=== PATIENT | male | born 1950 | race Caucasian/White ===

== ENCOUNTER → 2017-11-05 | Outpatient (CLI) | payer BC, MEDICARE ==
--- NOTE | 2017-11-05 15:47 | RAD ---
Chest, 2 views, 11/05/2017: History: Cough, bronchitis, URI Comparison is made to a study from 07/03/2011. The heart has increased in size and is now at the upper limits of normal. There are small bilateral pleural effusions. There are interstitial type opacities in the lungs. There is mild right parahilar infiltrate obscuring the underlying pulmonary vascularity. The findings suggest pulmonary edema due to congestive heart failure. Pneumonia is less likely. IMPRESSION: Borderline cardiomegaly with pulmonary infiltrates and small pleural effusions most compatible with congestive heart failure.
[2017-11-05 15:51] LABS: BASO % 1 % (0-3); EOS # 0.1 x10^3/uL (0.0-0.7); EOS % 1 % (0-3); HEMATOCRIT 27.6 % (39.0-53.0); LYMPH # 0.6 x10^3/uL (1.0-4.8); LYMPH % 9 % (24-48); MEAN CORPUSCULAR HEMOGLOBIN 33 pg (25-35); MEAN CORPUSCULAR HGB CONC 33 g/dL (31-37); MEAN CORPUSCULAR VOLUME 102 fL (79-100); MONO # 0.4 x10^3/uL (0.0-1.1); MONO % 6 % (0-9); NEUT # 5.3 x10^3uL (1.8-7.7); NEUT % 84 % (31-73); PLATELET COUNT 182 x10^3/uL (140-400); RED BLOOD COUNT 2.69 x10^6/uL (4.30-5.70); RED CELL DISTRIBUTION WIDTH 28.3 % (11.5-14.5); WHITE BLOOD COUNT 6.4 x10^3/uL (4.0-11.0)
[2017-11-05 15:54] LABS: CALCIUM 9.8 mg/dL (8.5-10.1); GFR 74.5; POTASSIUM 4.2 mmol/L (3.5-5.1)
[2017-11-05 22:28] LABS: ANISOCYTOSIS MOD; BURR CELLS FEW; MICROCYTOSIS SLIGHT; OVALOCYTES FEW; PLT ESTIMATE ADEQUATE (ADEQUATE)
== END | disposition home or self-care (01) ==
LOC: LAB 15:01
PROVIDERS: ATTEND Specialist
DX: J90 Pleural effusion, not elsewhere classified (principal); R91.8 Other nonspecific abnormal finding of lung field
CPT/HCPCS: 36415; 71020; 80048; 84484; 85025

== ENCOUNTER → 2017-12-15 | Outpatient (CLI) | payer BC, MEDICARE ==
[2017-12-15 15:13] LABS: CALCIUM 10.2 mg/dL (8.5-10.1); CREATININE 1.2 mg/dL (0.7-1.3); GFR 60.4; POTASSIUM 3.9 mmol/L (3.5-5.1)
== END | disposition home or self-care (01) ==
LOC: LAB 13:24
PROVIDERS: ATTEND Internal Medicine Cardiovascular Disease
DX: I35.0 Nonrheumatic aortic (valve) stenosis (principal)
CPT/HCPCS: 36415; 80048

== ENCOUNTER → 2018-01-25 | Outpatient (CLI) | payer BC, MEDICARE ==
--- NOTE | 2018-01-26 08:09 | RAD ---
Single view of the Chest 01/25/2018 5:21 PM Indication: AFIB, SHORT OF BREATH Comparison: Chest radiograph November 05, 2017 Findings: Interval development of a moderate to large right pleural effusion and trace left pleural effusion. Underlying atelectasis is noted, particularly on the right. Central vascular congestion and interstitial edema has decreased. No pneumothorax. Heart size is enlarged. There is interval postsurgical change following median sternotomy and aortic valve repair. No acute osseous changes are seen. Impression: 1. Interval aortic valve repair 2. Moderate right pleural effusion with underlying atelectasis 3. Trace left pleural effusion 4. Improved central vascular congestion and interstitial edema
== END | disposition home or self-care (01) ==
LOC: RAD 15:14
PROVIDERS: ATTEND Family Medicine
DX: J98.11 Atelectasis (principal); J90 Pleural effusion, not elsewhere classified; I51.7 Cardiomegaly; R60.0 Localized edema; R09.89 Other specified symptoms and signs involving the circulatory and respiratory systems
CPT/HCPCS: 71046

== ENCOUNTER → 2018-01-25 | Outpatient (CLI) | payer BC, MEDICARE ==
[2018-01-25 15:08] LABS: BASO % 1 % (0-3); EOS % 0 % (0-3); HEMATOCRIT 30.8 % (39.0-53.0); HEMOGLOBIN 9.8 g/dL (13.0-17.5); LYMPH # 0.4 x10^3/uL (1.0-4.8); LYMPH % 7 % (24-48); MEAN CORPUSCULAR HEMOGLOBIN 33 pg (25-35); MEAN CORPUSCULAR HGB CONC 32 g/dL (31-37); MEAN CORPUSCULAR VOLUME 104 fL (79-100); MONO # 0.7 x10^3/uL (0.0-1.1); MONO % 11 % (0-9); NEUT # 5.2 x10^3uL (1.8-7.7); NEUT % 82 % (31-73); PLATELET COUNT 193 x10^3/uL (140-400); RED BLOOD COUNT 2.97 x10^6/uL (4.30-5.70); RED CELL DISTRIBUTION WIDTH 26.7 % (11.5-14.5); WHITE BLOOD COUNT 6.4 x10^3/uL (4.0-11.0)
[2018-01-25 15:27] LABS: CALCIUM 10.3 mg/dL (8.5-10.1); GFR 74.5; POTASSIUM 4.5 mmol/L (3.5-5.1)
[2018-01-25 22:53] LABS: OVALOCYTES FEW; PLT ESTIMATE ADEQUATE (ADEQUATE)
[2018-01-25 22:54] LABS: ANISOCYTOSIS MOD; POLYCHROMASIA PRESENT
[2018-01-25 22:55] LABS: TEAR DROP CELLS OCC
[2018-01-25 22:56] LABS: MICROCYTOSIS PRESENT
== END | disposition home or self-care (01) ==
LOC: LAB 13:45
PROVIDERS: ATTEND Family Medicine
DX: I48.91 Unspecified atrial fibrillation (principal); R06.02 Shortness of breath
CPT/HCPCS: 36415; 80048; 83880; 85025

== ENCOUNTER → 2018-02-10 | Outpatient (CLI) | payer BC, MEDICARE ==
--- NOTE | 2018-02-10 12:46 | RAD ---
2 views of the Chest 02/10/2018 2:00 AM Indication: fluid in lungs Comparison: Chest radiograph 01/25/2018 Findings: There is a small left pleural effusion slightly increased in the interim. Some underlying compressive atelectasis persists. There is decrease in right pleural effusion. Residual effusion appears to be layering laterally suggesting a possible loculation. No pneumothorax. Stable postsurgical changes following median sternotomy and aortic valve repair. Heart size is top normal. No acute osseous changes are noted in the interim. Impression: 1. Decreased right pleural effusion, with residual lateral effusion, possibly loculated 2. Interval increase in small left pleural effusion
== END | disposition home or self-care (01) ==
LOC: DXRAD 10:37
PROVIDERS: ATTEND Internal Medicine
DX: J90 Pleural effusion, not elsewhere classified (principal)
CPT/HCPCS: 71046

== ENCOUNTER → 2019-10-05 | Outpatient (CLI) | payer MEDICARE ==
--- NOTE | 2019-10-05 15:01 | CARD ---
MR#: [id number] Date of Study: 10/05/2019 Ordering Physician: MELQUIADES GUARDADO, Referring Physician: MELQUIADES GUARDADO, Tech: Concha Caal APPROVED REPORT EXAM: Two-dimensional and M-mode echocardiogram with Doppler and color Doppler. Other Information Quality : AverageHR: 91bpm INDICATION LV Function:Systolic Surgery/Intervention Status/Post Aortic Valve Replacement: Date: 2017 2D DIMENSIONS RVDd3.9 (2.9-3.5cm)Left Atrium(2D)5.0 (1.6-4.0cm) IVSd1.1 (0.7-1.1cm)Aortic Root(2D)2.8 (2.0-3.7cm) LVDd5.8 (3.9-5.9cm)LVOT Diameter1.9 (1.8-2.4cm) PWd1.3 (0.7-1.1cm)LVDs3.9 (2.5-4.0cm) FS (%) 32.8 %SV102.6 ml LVEF(%)60.4 (>50%) Aortic Valve AoV Peak Donovan.347.0cm/sAoV VTI71.1cm AO Peak GR.48.2mmHgLVOT Peak Donovan.83.0cm/s LVOT VTI 18.41cmAO Mean GR.26mmHg JUDE (VMAX)0.36so6DQX (VTI)0.75cm2 Mitral Valve MV E Wjfzapcd217.3cm/sMV DECEL DMMO076vd MV A Aguhooya23.7cm/sE/A Ratio2.9 Pulmonary Valve PV Peak Sdmxeqqq14.9cm/sPV Peak Grad.4mmHg Tricuspid Valve TR P. Bnniyoyz335lg/sRAP NAVCUDUQ0spEp TR Peak Gr.87naBjAQLN42myHj Pulmonary Vein S1 Dekmiosh54.4cm/sD2 Antaxryj92.5cm/s LEFT VENTRICLE The left ventricle is normal size. There is moderate concentric left ventricular hypertrophy. The lef t ventricular systolic function is normal and the ejection fraction is within normal range. EF 50-55% Septal motion suggestive of prior sternotomy. Septal motion also suggestive of conduction defect. Ot herwise, normal wall motion. Tissue Doppler imaging reveals abnormal left ventricular diastolic dysfu nction, Grade 2 No left ventricle thrombus noted on this study. There is no ventricular septal defect visualized. There is no left ventricular aneurysm. RIGHT VENTRICLE The right ventricle is mildly dilated. There is normal right ventricular wall thickness. The right ve ntricular systolic function is normal. There is a pacermaker/ICD lead noted in the RA/RV. ATRIA The left atrium is moderately dilated. The right atrium is moderately dilated. The interatrial septum is intact with no evidence for an atrial septal defect or patent foramen ovale as noted on 2-D or Do ppler imaging. AORTIC VALVE Probable bioprosthetic aortic valve is not well visualized. Doppler and Color Flow revealed no signif icant aortic regurgitation. 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 Dimensionless index ap proximately 0.25 suggestive of moderate . Mean gradient of 25 mm Hg, Peak 44 mm Hg. Approximated EO A of 0.40, likely underestimated, but overall measurements suggestive of patient prosthesis mismatch. MITRAL VALVE The mitral valve is normal in structure and function. There is no evidence of mitral valve prolapse. There is no mitral valve stenosis. Doppler and Color-flow revealed trace to mild mitral regurgitation . TRICUSPID VALVE The tricuspid valve is normal in structure and function. Doppler and Color Flow revealed mild tricusp id regurgitation with an estimated PAP of 41 mmHg. There is no tricuspid valve stenosis. PULMONIC VALVE The pulmonic valve is not well visualized. Doppler and Color Flow revealed trace pulmonic valvular re gurgitation. There is no pulmonic valvular stenosis. GREAT VESSELS The aortic root is normal in size. The IVC is dilated. PERICARDIAL EFFUSION There is no evidence of significant pericardial effusion. Critical Notification Critical Value: No <Conclusion> The left ventricular systolic function is normal and the ejection fraction is within normal range. EF 50-55% Septal motion suggestive of prior sternotomy. Septal motion also suggestive of conduction defect. Oth erwise, normal wall motion. Tissue Doppler imaging reveals abnormal left ventricular diastolic dysfunction, Grade 2 The right ventricle is mildly dilated. There is a pacermaker/ICD lead noted in the RA/RV. 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 Dimensionless index approximately 0.25 suggestive of moderate . Mean gradient of 25 mm Hg, Peak 44 mm Hg. Approximated EOA of 0.40, likely underestimated, but overall measurements suggestive of patient prost hesis mismatch. Consider JESÚS based on clinical presentation. Signed by : Juan Beard, Electronically Approved : 10/05/2019 15:00:44
== END | disposition home or self-care (01) ==
LOC: ECHO 12:51
PROVIDERS: ATTEND Internal Medicine Cardiovascular Disease
DX: I08.1 Rheumatic disorders of both mitral and tricuspid valves (principal); I48.19 Other persistent atrial fibrillation
CPT/HCPCS: 93306

== ENCOUNTER → 2021-04-03 | Outpatient (CLI) | payer MEDICARE ==
--- NOTE | 2021-04-03 17:05 | CARD ---
MR#: [id number] Date of Study: 04/03/2021 Ordering Physician: LOW HUNT, Referring Physician: LOW HUNT Tech: Luh Wheat RDCS APPROVED REPORT EXAM: Two-dimensional and M-mode echocardiogram with Doppler and color Doppler. Other Information Quality : Fair Rhythm : Atrial Fibrillation INDICATION Atrial Fibrillation Surgery/Intervention Status/Post Aortic Valve Replacement: Bioprosthetic Type: [employer] 25mm Model 3300TFX Serial [id number] Date: 12/26/2017 ICD/Pacemaker: Date: 12/2017 2D DIMENSIONS RVDd2.8 (2.9-3.5cm)Left Atrium(2D)6.3 (1.6-4.0cm) IVSd1.1 (0.7-1.1cm)Aortic Root(2D)2.8 (2.0-3.7cm) LVDd5.0 (3.9-5.9cm)LVOT Diameter2.5 (1.8-2.4cm) PWd1.1 (0.7-1.1cm)LVDs3.4 (2.5-4.0cm) FS (%) 32.3 %SV71.5 ml LVEF(%)55.0 (>50%) Aortic Valve AoV Peak Donovan.306.8cm/sAoV VTI60.1cm AO Peak GR.37.7mmHgLVOT Peak Donovan.154.9cm/s LVOT VTI 31.11cmAO Mean GR.22mmHg JUDE (VMAX)2.29ie3UJV (VTI)2.21cm2 Tricuspid Valve TR P. Xbulakhu031jz/sRAP HUMFTBZX1huAy TR Peak Gr.58eqDqXKFK20obKv Pulmonary Vein S1 Nmrholzl76.0cm/sD2 Sbuuuoxu93.4cm/s LEFT VENTRICLE The left ventricle is normal size. There is normal left ventricular wall thickness. The left ventricu lar systolic function is normal and the ejection fraction is within normal range. The Ejection Fracti on is 55-60%. There is normal LV segmental wall motion. RIGHT VENTRICLE The right ventricle is mildly dilated. The right ventricular systolic function is normal. There are d evice leads in the right ventricle and atrium. ATRIA The left atrium is moderately dilated. The right atrium is mildly dilated at 22 cm2. The interatrial septum is intact with no evidence for an atrial septal defect or patent foramen ovale as noted on 2-D or Doppler imaging. AORTIC VALVE Doppler and Color Flow revealed trace aortic regurgitation. Calculated maximum pressure gradient of 3 8 mmHg and mean pressure gradient of 22 mmHg. There is a porcine aortic valve prosthesis. The prosthe tic aortic valve appears well seated. Bioprosthesis leaflets are thin and appear to move normally. MITRAL VALVE The mitral valve is calcified but opens well. Mitral annular calcification is mild. There is no evide nce of mitral valve prolapse. There is no mitral valve stenosis. Doppler and Color-flow revealed mild mitral regurgitation. TRICUSPID VALVE The tricuspid valve is normal in structure and function. Doppler and Color Flow revealed mild tricusp id regurgitation. The PA pressure was estimated at 43 mmHg. There is no tricuspid valve stenosis. PULMONIC VALVE The pulmonic valve is not well visualized. Doppler and Color Flow revealed trace pulmonic valvular re gurgitation. There is no pulmonic valvular stenosis. GREAT VESSELS The aortic root is normal in size. The ascending aorta is not well seen. The IVC is normal in size an d collapses >50% with inspiration. PERICARDIAL EFFUSION There is no evidence of significant pericardial effusion. Critical Notification Critical Value: No <Conclusion> The left ventricle is normal size. The left ventricular systolic function is normal and the ejection fraction is within normal range. The Ejection Fraction is 55-60%. Doppler and Color Flow revealed trace aortic regurgitation. There is a porcine aortic valve prosthesis. The prosthetic aortic valve appears well seated. Bioprosthesis leaflets are thin and appear to move normally. Calculated maximum pressure gradient of 38 mmHg and mean pressure gradient of 22 mmHg. Doppler and Color-flow revealed mild mitral regurgitation. Doppler and Color Flow revealed mild tricuspid regurgitation. The PA pressure was estimated at 43 mmHg. Signed by : Tein Swan MD Electronically Approved : 04/03/2021 17:05:04
== END ==
LOC: ECHO 09:56
PROVIDERS: ATTEND Internal Medicine Cardiovascular Disease
DX: I08.1 Rheumatic disorders of both mitral and tricuspid valves (principal)
CPT/HCPCS: 93306

== ENCOUNTER → 2022-03-26 | Outpatient (CLI) | payer MEDICARE ==
--- NOTE | 2022-03-26 17:44 | CARD ---
MR#: [id number] Date of Study: 03/26/2022 Ordering Physician: LOW HUNT, Referring Physician: Doug HUERTAS: Simón Cronin [facility] APPROVED REPORT EXAM: Two-dimensional and M-mode echocardiogram with Doppler and color Doppler. Other Information Quality : AverageHR: 80bpm Rhythm : Pacemaker INDICATION Aortic Valve Disease Surgery/Intervention Status/Post Aortic Valve Replacement: Bioprosthetic Type: [employer] 25mm Model 3300 Serial #[id number] Date: 12/26/17 ICD/Pacemaker: Date: 12/2017 2D DIMENSIONS RVDd5.4 (2.9-3.5cm)Left Atrium(2D)6.9 (1.6-4.0cm) IVSd1.2 (0.7-1.1cm)Aortic Root(2D)3.6 (2.0-3.7cm) LVDd5.2 (3.9-5.9cm)LVOT Diameter2.0 (1.8-2.4cm) PWd1.2 (0.7-1.1cm)LVDs3.4 (2.5-4.0cm) FS (%) 34.3 %SV80.5 ml LVEF(%)63.0 (>50%) Aortic Valve AoV Peak Donovan.278.7cm/sAoV VTI57.9cm AO Peak GR.31.1mmHgLVOT Peak Donovan.103.9cm/s LVOT VTI 21.63cmAO Mean GR.19mmHg JUDE (VMAX)1.02ii8YXM (VTI)1.15cm2 Mitral Valve MV E Yabasbnn031.2cm/sMV E Peak Gr.5mmHg MV DECEL HBGR428xzVK A Qbdlcwef81.7cm/s MV E Mean Gr.2mmHgE/A Ratio3.7 Pulmonary Valve PV Peak Xvfkaesg637.0cm/sPV Peak Grad.4mmHg Tricuspid Valve TR P. Fpecjssl523no/sTR Peak Gr.33mmHg Pulmonary Vein S1 Dzjtpfcn07.7cm/sD2 Emhaufor29.3cm/s LEFT VENTRICLE The left ventricle is normal size. There is mild concentric left ventricular hypertrophy. The left ve ntricular systolic function is normal. The ejection fraction is 55-60%. There is normal LV segmental wall motion. No left ventricle thrombus noted on this study. There is no ventricular septal defect vi sualized. There is no left ventricular aneurysm. There is no mass noted in the left ventricle. RIGHT VENTRICLE The right ventricle is mildly dilated. There is normal right ventricular wall thickness. The right ve ntricular systolic function is normal. Pacer/ICD wire is noted in the RA/RV. ATRIA The left atrium is moderately dilated. The right atrium is moderately dilated. The interatrial septum is intact with no evidence for an atrial septal defect or patent foramen ovale as noted on 2-D or Do ppler imaging. AORTIC VALVE Doppler and Color Flow revealed no significant aortic regurgitation. The bioprosthetic aortic valve h as a maximum pressure gradient of 31 mmHg and mean pressure gradient of 18 mmHg. The prosthetic aorti c valve appears well seated. MITRAL VALVE The mitral valve is mildly thickened. Mitral annular calcification is mild. There is no evidence of m itral valve prolapse. There is no mitral valve stenosis. Doppler and Color-flow revealed mild mitral regurgitation. TRICUSPID VALVE The tricuspid valve is normal in structure and function. Doppler and Color Flow revealed trace to mil d tricuspid regurgitation. The PA pressure was estimated at 35-40 mmHg. There is no tricuspid valve p rolapse or vegetation. There is no tricuspid valve stenosis. PULMONIC VALVE The pulmonary valve is normal in structure and function. Doppler and Color Flow revealed no pulmonic valvular regurgitation. There is no pulmonic valvular stenosis. GREAT VESSELS The aortic root is normal in size. The ascending aorta is normal in size. The pulmonary artery is nor mal. The IVC is mildly dilated. PERICARDIAL EFFUSION There is no pleural effusion. There is no evidence of significant pericardial effusion. Critical Notification Critical Value: No <Conclusion> The left ventricular systolic function is normal. The ejection fraction is 55-60%. There is normal LV segmental wall motion. Pacer/ICD wire is noted in the RA/RV. Moderate biatrial dilation. Bioprosthetic aortic valve appears well seated and functioning well with mean gradient 18 mmHg. Mild mitral regurgitation. Trace to mild tricuspid regurgitation. The PA pressure was estimated at 35-40 mmHg. There is no evidence of significant pericardial effusion. Signed by : Low Hunt, Electronically Approved : 03/26/2022 17:44:18
== END ==
LOC: ECHO 08:38
PROVIDERS: ATTEND Internal Medicine Cardiovascular Disease
DX: I08.1 Rheumatic disorders of both mitral and tricuspid valves (principal)
CPT/HCPCS: 93306

== ENCOUNTER 2022-04-26 09:38 | Emergency (ER) | payer MEDICARE ==
[~2022-04-26] VITALS: Ht 172.7 cm; Wt 133.0 kg
[2022-04-26] MEDS ORDERED: IV NORMAL SALINE 1,000ML 1,000 ML IV SCH (10:30)
--- NOTE | 2022-04-26 10:57 | RAD ---
AP chest. HISTORY: Left arm pain, history of heart problems AP view was taken of the chest. Heart is upper normal in size with evidence of prior bypass. There is a left pacemaker with 3 pacing leads. There is no pleural effusion. There are no confluent infiltrat es. There is mild elevation of the left diaphragm. IMPRESSION: 1. Previous bypass. 2. Left pacemaker with 3 pacing leads. 3. No acute infiltrates. Electronically signed by: Jeremias Caba MD (04/26/2022 10:55 AM) [id number]
[2022-04-26 11:16] LABS: BASO % 1 % (0-3); EOS # 0.1 x10^3/uL (0.0-0.7); EOS % 1 % (0-3); HEMATOCRIT 28.5 % (39.0-53.0); HEMOGLOBIN 9.5 g/dL (13.0-17.5); LYMPH # 0.7 x10^3/uL (1.0-4.8); LYMPH % 12 % (24-48); MEAN CORPUSCULAR HEMOGLOBIN 34 pg (25-35); MEAN CORPUSCULAR HGB CONC 33 g/dL (31-37); MEAN CORPUSCULAR VOLUME 103 fL (79-100); MONO # 0.4 x10^3/uL (0.0-1.1); MONO % 7 % (0-9); NEUT # 4.4 x10^3uL (1.8-7.7); NEUT % 78 % (31-73); PLATELET COUNT 194 x10^3/uL (140-400); RED BLOOD COUNT 2.76 x10^6/uL (4.30-5.70); RED CELL DISTRIBUTION WIDTH 29.8 % (11.5-14.5); WHITE BLOOD COUNT 5.6 x10^3/uL (4.0-11.0)
[2022-04-26 11:21] LABS: CALCIUM 9.7 mg/dL (8.5-10.1); CREATININE 1.1 mg/dL (0.7-1.3); POTASSIUM 3.9 mmol/L (3.5-5.1)
--- NOTE | 2022-04-26 11:26 | PHYS DOC ---
Past History Additional Past Medical Histor: defib Past Surgical History: Coronary Bypass Surgery, Other Additional Past Surgical Histo: Ablation Alcohol Use: None General Adult EDM: Chief Complaint: UPPER EXTREMITY PAIN HPI: HPI: Patient is a 71-year-old male presents with left arm achiness and mild shortness of breath. Patient states that symptoms started last night. Patient reports "I had tingling all over my body that kept me up all night". Patient denies any known injury to left arm. Denies chest pain, dizziness. Patient has bilateral, nonpitting, lower leg edema. Patient has a history of CHF and currently takes Lasix. Patient reports that his leg swelling is normal for him. History of CHF, CABG. Review of Systems: Review of Systems: ROS At least 10 ROS systems have been reviewed and are negative except as documented in the HPI. General: Negative except as outlined in HPI above. Skin: Negative except as outlined in HPI above. HEENT: Negative except as outlined in HPI above. Neck: Negative except as outlined in HPI above. Respiratory: Negative except as outlined in HPI above.. Cardiovascular: Negative except as outlined in HPI above. Abdomen: Negative except as outlined in HPI above. : Negative except as outlined in HPI above. Back/MSK: Negative except as outlined in HPI above. Neuro: Negative except as outlined in HPI above. Psych: Negative except as outlined in HPI above. Current Medications: Current Meds: Current Medications Medications (Trade) Dose Ordered Sig/Guillaume Start Time Stop Time Status Last Admin Dose Admin Sodium Chloride 1,000 ml @ 1,000 mls/hr Q1H 04/26/22 10:30 04/26/22 11:29 04/26/22 10:30 1,000 MLS/HR Allergies: Allergies: Allergies Coded Allergies Type Severity Reaction Last Updated Verified No Known Drug Allergies 09/28/20 No Physical Exam: PE: Constitutional: Well developed, well nourished, no acute distress, non-toxic appearance. [] HENT: Normocephalic, atraumatic, bilateral external ears normal, oropharynx moist, no oral exudates, nose normal. [] Eyes: PERRLA, EOMI, conjunctiva normal, no discharge. [] Neck: Normal range of motion, no tenderness, supple, no stridor. [] Cardiovascular:Heart rate regular rhythm, no murmur [] Lungs & Thorax: Bilateral breath sounds clear to auscultation [] Abdomen: Bowel sounds normal, soft, no tenderness, no masses, no pulsatile masses. [] Skin: Warm, dry, no erythema, no rash. [] Back: No tenderness, no CVA tenderness. [] Extremities: LUE-numbness and tingling, pain, no swelling or weakness, radial pulses intact Neurologic: Alert and oriented X 3, normal motor function, normal sensory function, no focal deficits noted. [] Psychologic: Affect normal, judgement normal, mood normal. [] Current Patient Data: Vital Signs: Vital Signs Date Time Temp Pulse Resp B/P (MAP) Pulse Ox O2 Delivery O2 Flow Rate FiO2 04/26/22 10:09 98.0 82 18 148/86 (106) 98 Room Air EKG: EKG: [] Radiology/Procedures: Radiology/Procedures: []AP chest. HISTORY: Left arm pain, history of heart problems AP view was taken of the chest. Heart is upper normal in size with evidence of prior bypass. There is a left pacemaker with 3 pacing leads. There is no pleural effusion. There are no confluent infiltrates. There is mild elevation of the left diaphragm. IMPRESSION: 1. Previous bypass. 2. Left pacemaker with 3 pacing leads. 3. No acute infiltrates. Electronically signed by: Jeremias Caba MD (04/26/2022 10:55 AM) [id number] Heart Score: C/O Chest Pain: No Risk Factors: Risk Factors: DM, Current or recent (<one month) smoker, HTN, HLP, family history of CAD, obesity. Risk Scores: Score 0 - 3: 2.5% MACE over next 6 weeks - Discharge Home Score 4 - 6: 20.3% MACE over next 6 weeks - Admit for Clinical Observation Score 7 - 10: 72.7% MACE over next 6 weeks - Early Invasive Strategies Course & Med Decision Making: Course & Med Decision Making Pertinent Labs and Imaging studies reviewed. (See chart for details) [] 71-year-old male presents with left arm achiness since last night. Denies any other neuro symptoms. No other complaints. Work-up consisted of CBC, CMP, troponin, dimer. Patient's labs are mostly unremarkable. Bilirubin is slightly elevated at 2.0. BNP of 1361. Patient does have a history of congestive heart failure. Troponin and D-dimer are both negative. Patient's chest x-ray is also unremarkable. Patient does have bilateral, lower leg nonpitting edema. Denies any changes in swelling. I discussed all results with patient. Patient has an appointment with his PCP, Dr. Briseno on Friday and cardiology on the . I discussed return precautions in length with the patient. Patient ve rbalized understanding of discharge instructions and strict return precautions. Patient is appreciative and okay with discharge plan. Dragon Disclaimer: Dragon Disclaimer: This electronic medical record was generated, in whole or in part, using a voice recognition dictation system. Departure Departure: Impression: Primary Impression: Left upper arm pain Disposition: HOME / SELF CARE / HOMELESS Condition: STABLE Referrals: CHUN BRISENO MD (PCP) Additional Instructions: You were seen in the emergency room for left upper arm achiness. All of your labs were unremarkable. Please follow-up with Dr. Briseno on Friday for further management. Return to the ER if you have worsening symptoms or concerns such as chest pain, shortness of breath, increase in pain. EMERGENCY DEPARTMENT GENERAL DISCHARGE INSTRUCTIONS Thank you for coming to [facility] (ED) today and trusting us with you care. We trust that you had a positivie experience in our Emergency Department. If you wish to speak to the department management, you may call the director at [phone]. YOUR FOLLOW UP INSTRUCTIONS ARE FOLLOWS: 1. Do you have a private Doctor? If you do not have a private doctor, please ask for a resource list of physicians or clinics that may be able to assist you with follow up care. 2. The Emergency Physician has interpreted your x-rays. The X-Ray specialist will also review them. If there is a change in the findings, you will be notified in 48 hours when at all possible. 3. A lab test or culture has been done, your results will be reviewed and you will be notified if you need a change in treatment. ADDITIONAL INSTRUCTIONS AND INFORMATION: 1. Your care today has been supervised by a physician who is specially trained in emergency care. Many problems require more than one evaluation for a complete diagnosis and treatment. We recommend that you schedule your follow up appointment as recommended to ensure complete treatment of you illness or injury. If you are unable to obtain follow up care and continue to have a problem, or if your condition worsens, we recommend that you return to the ED. 2. We are not able to safely determine your condition over the phone nor are we able to give sound medical advice over the phone. For these safety reasons, if you call for medical advice we will ask you to come to the ED for further evaluation. 3. If you have any questions regarding these discharge instructions please call the ED at [phone]. SAFETY INFORMATION: In the interest of safety, wellness, and injury prevention; we encourage you to wear your sealbelt, if you smoke; quite smoking, and we encourage family to use a protective helmet for bicycling and other sporting events that present an increased risk for head injury. IF YOUR SYMPTOMS WORSEN OR NEW SYMPTOMS DEVELOP, OR YOU HAVE CONCERNS ABOUT YOUR CONDITION; OR IF YOUR CONDITION WORSENS WHILE YOU ARE WAITING FOR YOUR FOLLOW UP APPOINTMENT; EITHER CONTACT YOUR PRIMARY CARE DOCTOR, THE PHYSICIAN WHOSE NAME AND NUMBER YOU WERE GIVEN, OR RETURN TO THE ED IMMEDIATELY. KARTHIK SALINAS APRN April 26, 2022 11:26
[2022-04-26 11:34] LABS: ALBUMIN 3.3 g/dL (3.4-5.0); ALBUMIN/GLOBULIN RATIO 1.2 (1.0-1.7); MAGNESIUM 2.3 mg/dL (1.8-2.4); TOTAL PROTEIN 6.1 g/dL (6.4-8.2)
[2022-04-26 12:46] LABS: BACTERIA,URINE 0 /HPF (0-FEW); CLARITY,URINE CLEAR; COLOR,URINE YELLOW; GLUCOSE,URINE NEG (NEG); NITRITE,URINE NEG (NEG); RBC,URINE 0 /HPF (0-2); WBC,URINE 0 /HPF (0-4)
[2022-04-26 13:17] LABS: PLT ESTIMATE ADEQUATE (ADEQUATE)
[2022-04-26 13:19] LABS: ANISOCYTOSIS MARKED; POIKILOCYTOSIS SLIGHT
[2022-04-26 13:20] LABS: OVALOCYTES OCC; SCHISTOCYTES OCC
[2022-04-26 13:30] VITALS: BP 109/60
== END 2022-04-26 13:35 | disposition home or self-care (01) ==
LOC: ER 09:38
DX: M79.602 Pain in left arm (principal); R60.0 Localized edema; R06.02 Shortness of breath; R20.2 Paresthesia of skin; I50.9 Heart failure, unspecified; Z95.1 Presence of aortocoronary bypass graft
CPT/HCPCS: 36415; 71045; 80053; 81001; 83735; 83880; 84484; 85025; 85379; 93005; 96360; 99285; J7030